=== PATIENT | female | born 1995 | race Two or more races ===

== ENCOUNTER → 2017-08-24 | Outpatient (CLI) | payer OTHER ==
[2017-08-24 21:05] LABS: HEMATOCRIT 39.2 % (36.0-47.0); HEMOGLOBIN 12.3 g/dl (12.0-15.5); MEAN CORPUSCULAR HEMOGLOBIN 25.2 pg (27.0-33.0); MEAN CORPUSCULAR HGB CONC 31.4 g/dl (32.0-36.5); MEAN CORPUSCULAR VOLUME 80.3 fl (80.0-96.0); PLATELET COUNT, AUTOMATED 358 10^3/uL (150-450); RED BLOOD COUNT 4.88 10^6/uL (4.00-5.40); RED CELL DISTRIBUTION WIDTH 15.8 % (11.5-14.5); WHITE BLOOD COUNT 8.6 10^3/uL (4.0-10.0)
[2017-08-24 21:24] LABS: ESTIMATED AVERAGE GLUCOSE 97 MG/DL (60-110)
[2017-08-24 21:25] LABS: ALBUMIN 3.9 GM/DL (3.2-5.2); ALBUMIN/GLOBULIN RATIO 1.08 (1.00-1.93); ALKALINE PHOSPHATASE 86 U/L (45-117); ALT/SGPT 24 U/L (12-78); ANION GAP 5 MEQ/L (8-16); AST/SGOT 13 U/L (7-37); BILIRUBIN,TOTAL 0.2 MG/DL (0.2-1.0); BLOOD UREA NITROGEN 8 MG/DL (7-18); CALCIUM LEVEL 8.5 MG/DL (8.5-10.1); CARBON DIOXIDE LEVEL 28 MEQ/L (21-32); CHLORIDE LEVEL 109 MEQ/L (98-107); CREATININE FOR GFR 0.75 MG/DL (0.55-1.30); FREE T4 0.65 NG/DL (0.76-1.46); GLOMERULAR FILTRATION RATE > 60.0 (>60); GLUCOSE, FASTING 83 MG/DL (70-100); SODIUM LEVEL 142 MEQ/L (136-145); TOTAL PROTEIN 7.5 GM/DL (6.4-8.2)
[2017-08-24 21:54] LABS: TOTAL 25(OH) VITAMIN D 16.1 NG/ML (30.0-100.0)
[2017-08-24 21:55] LABS: FOLATE 12.9 NG/ML; VITAMIN B12 LEVEL 406 PG/ML
== END ==
LOC: M LRY 15:45
DX: E66.09 Other obesity due to excess calories (principal); E55.9 Vitamin D deficiency, unspecified; R53.82 Chronic fatigue, unspecified; Z13.0 Encounter for screening for diseases of the blood and blood-forming organs and certain disorders involving the immune mechanism; Z13.29 Encounter for screening for other suspected endocrine disorder; Z13.1 Encounter for screening for diabetes mellitus

== ENCOUNTER → 2017-09-12 | Outpatient (CLI) | payer OTHER ==
[2017-09-12 11:46] LABS: FREE T4 0.83 NG/DL (0.76-1.46)
== END ==
LOC: M LRY 09:36
DX: R94.6 Abnormal results of thyroid function studies (principal)
CPT/HCPCS: 84443

== ENCOUNTER 2019-02-05 16:48 | Emergency (ER) | payer OTHER ==
[~2019-02-05] VITALS: Ht 165.1 cm; Wt 85.6 kg
[2019-02-05] MEDS ORDERED: PHEN-239 PO (16:57)
[2019-02-05 18:17] LABS: APPEARANCE, URINE HAZY (CLEAR); BACTERIA, URINE AUTO NEGATIVE (NEGATIVE); BILIRUBIN, URINE AUTO NEGATIVE (NEGATIVE); BLOOD, URINE BLOOD NEGATIVE (NEGATIVE); COLOR, URINE YELLOW (YELLOW); GLUCOSE, URINE (UA) AUTO NEGATIVE (NEGATIVE); KETONE, URINE AUTO TRACE mg/dL (NEGATIVE); LEUKOCYTE ESTERASE, URINE AUTO TRACE (NEGATIVE); MUCUS, URINE SMALL (NEGATIVE); NITRITE, URINE AUTO NEGATIVE (NEGATIVE); PROTEIN, URINE AUTO NEGATIVE (NEGATIVE); RBC, URINE AUTO 5 /HPF (0-3); SPECIFIC GRAVITY URINE AUTO 1.023 (1.002-1.035); SQUAMOUS EPITHELIAL CELL UR AU 5 /HPF (0-6); UROBILINOGEN, URINE AUTO 0.2 mg/dL (0.0-2.0); WBC, URINE AUTO 2 /HPF (0-3)
--- NOTE | 2019-02-05 19:31 | REPVR ---
EXAM: US Pelvis Complete, Transabdominal and US Pelvis, Transvaginal and US Duplex Artery and Vein, Ovaries, Complete EXAM DATE/TIME: 02/05/2019 7:01 PM CLINICAL HISTORY: 23 years old, female; Pelvic pain; Additional info: Dislodged iud? Pelvic pain with HX of same TECHNIQUE: Imaging protocol: Real-time transabdominal and transvaginal pelvic ultrasound (complete) with image documentation. Transvaginal imaging was used for better evaluation of the endometrium and adnexa. Real-time duplex ultrasound scan of the arterial and venous flow of the ovaries with B-mode, color Doppler flow and spectral waveform analysis. COMPARISON: No relevant prior studies available. FINDINGS: Uterus/cervix: The uterus measures 7.5 x 3.7 x 5.2 cm. The endometrium measures 6.1 mm. An IUD is present, appears appropriately positioned. Right adnexa: The right ovary measures 3.4 x 2.0 x 2.7 cm. No mass or dominant cyst. Normal color and spectral blood flow. Left adnexa: The left ovary measures 2.4 x 1.2 x 2.2 cm. No mass or dominant cyst. Normal color and spectral blood flow. Free fluid: None. Bladder: Unremarkable considering the limited degree of distention on the transabdominal images. IMPRESSION: 1. No acute findings. 2. Appropriately positioned intrauterine device. 3. No evidence of ovarian torsion. Electronically signed by: Nereyda Sexton On 02/05/2019 19:31:21 PM
[2019-02-05 19:42] LABS: CHLAMYDIA DNA AMPLIFICATION NEGATIVE (NEGATIVE); GC DNA AMPLIFICATION NEGATIVE (NEGATIVE)
[2019-02-05] MEDS ORDERED: metroNIDAZOLE (FLAGYL) 500 MG TAB PO ONE (19:45)
[2019-02-05] MEDS ORDERED: FLAG500T PO (19:47)
[2019-02-05 19:48] VITALS: BP 116/63
== END 2019-02-05 19:55 | disposition home or self-care (01) ==
LOC: M ED 16:48
DX: N76.0 Acute vaginitis (principal); Z97.5 Presence of (intrauterine) contraceptive device; Z79.899 Other long term (current) drug therapy

== ENCOUNTER → 2021-01-29 | Outpatient (CLI) | payer OTHER ==
[~2021-01-29] MED LIST: FLAG500T PO; PHEN-239 PO
--- NOTE | 2021-01-29 16:22 | REP ---
INDICATION: GROWTH-POLYHYDRAMNIOS. COMPARISON: None. TECHNIQUE: Real-time sonographic evaluation of the gravid uterus performed. FINDINGS: Estimated gestational age is36 weeks 1 day, EDC 02/25/2021. Today's measurements indicate appropriate growth. Presentation: Cephalic Placenta anterior, grade 0, without evidence of placenta previa. heart rate is recorded at 150 beats per minute. Amniotic fluid is subjectively normal. MAU 16.1, normal 7.7-24.9. Biophysical profile score 8/8. SD ratio umbilical artery 1.93, normal 1.64-3.50. RI 0.48, normal 0.45-0.71. Closed cervical length is measured at 3.9 cm. Biometry chart: BPD: 93 mm, 37 weeks 5 days, 73rd percentile. HC: 337 mm, 38 weeks 4 days, 92nd percentile AC: 359 mm, 39 weeks 6 days, over 95th percentile Femur length: 76 mm, 39 weeks 0 days, 92nd percentile HC to AC ratio: 0.94, normal range 0.92-1.11. Estimated weight: 3728g, over 97th percentile. anatomy: Cranium: Grossly normal Nose/lips/profile: Grossly normal Left-sided stomach: Grossly normal Kidneys: Grossly normal Bladder: Grossly normal Cord Insertion: Grossly normal 3 vessel cord: Grossly normal Spine: Grossly normal IMPRESSION: Viable single intrauterine gestation as above. <Electronically signed by Israel Shi > 01/29/21 [id number]
== END ==
LOC: M RAD 14:54
PROVIDERS: ATTEND Obstetrics & Gynecology
DX: Z36.89 Encounter for other specified antenatal screening (principal); Z3A.36 36 weeks gestation of pregnancy

== ENCOUNTER 2021-02-19 20:50 | Inpatient (IN) | payer OTHER ==
[~2021-02-19] VITALS: Ht 165.1 cm; Wt 109.2 kg
[2021-02-19] MEDS ORDERED: PRENTAB9 PO (21:01)
[2021-02-19] MEDS ORDERED: ACET325C5 PO (21:08)
[2021-02-19] MEDS ORDERED: TUMS500C PO (21:08)
[2021-02-19] MEDS ORDERED: HOME MED LIST COMPLETE! XX SCH (21:10)
[2021-02-19 21:21] VITALS: BP 109/65
--- NOTE | 2021-02-19 22:22 | HPEPDOC ---
Obstetrical History & Physical General Date of Admission Feb 19, 2021 at 20:50 History of Present Illness 25yo presents for induction of labor 2/2 polyhydramnios, LGA. SHe is 39+ 1 today. she feels well and denies vaginal bleeding, loss of fluid. Feels occasional contractions and endorses positive movement. Care Care: Good Care Dating Final EDC: Feb 25, 2021 Final EDC by: LMP LMP: May 21, 2020 Antepartum Course Diagnos(e)s polyhydramnios LGA 97% [id number] obesity rH negative excessive weight gain Pre- weight (lbs.): 190 Admission Weight (lbs.): 233 Change in Weight (lbs.): 43 Past Medical History Past Obstetrical History : Past Obstetrical History: Multigravida (G1 2017 at 37 weeks, G2 SAB) ALTERATION MANAGER History: Spontaneous Past Medical History Medical History depression (needs 2-week follow up) Surgical History: Appendectomy, [place] teeth Family History Significant Family History: Other Family History Mother high cholesterol Father high blood pressure Social History Marital Status: Family situation: Spouse/partner home Psychosocial History: Other ( depression) * Smoker: non-smoker Alcohol: Denies Drugs: denies Abuse Violence Screening Have you been hit/kicked/slapp: No Have you been sexually assault: No Imunizations Tdap status: declined Influenza Status: current Allergies Coded Allergies: No Known Allergies (Unverified , 02/05/19) Medications Scheduled No.137/Iron/Folic Acd ( Vitamin Tablet) 1 Each Tablet, 1 TAB PO DAILY Miscellaneous Medications Acetaminophen (Tylenol) 325 Mg Capsule, 1,000 MG PO Calcium Carbonate (Tums) 200 Mg Tab.chew, 500 MG PO Physical Examination Physical Examination GENERAL: Alert and oriented times three. ABDOMEN: Gravid and non-tender to touch. FETUS: Is vertex (VTX) by sterile vaginal examination (SVE), fetus is vertex (VTX) by ultrasound. EFW 3800g HEART RATE: Regular rate LUNGS: nonlabored breathing EXTREMITIES: No edema. Laboratory Data 24H LABS Laboratory Tests 2 02/19/21 21:17: Serology Scanned Report Hepatitis B Testing Urine Culture: No Growth Pertinent Laboratoy Data Blood Type: B- RBC Antibody Screen: Negative HIV: Negative Hepatitis B: Negative Rapid Plasma Reagin: Nonreactive Rubella: Immune Varicella: Immune Chlamydia/Gonorrhea: Negative Group B Streptococcus: Negative Quad Screen Test: Negative Cystic Fibrosis: Negative Anatomy Ultrasound Placenta Location: Anterior Normal Anatomy: Yes Placenta Previa: No Other Ultrasounds [id number] 97% 3728g Steroid Therapy Steroid Therapy: No Vaginal Examination Dilation: 1cm Effacement: 30% Station: -3 Presentation: Cephalic presentation Position: Vertex (occiput) Assessment Heart Rate (FHR): 130 Variability: Moderate Accelerations: Positive Decelerations: None Tocometer Contractions: Yes Frequency: irregular (does not feel them) Multi-drug resistant Organism: No history of MDRO Assessment/Plan Assessment Faith Denson is a 25-year-old (G)3 para (P)1011 at 39+1 weeks by LMP and first trimestter ultrasound. Presents to Labor and Delivery (L&D) for induction of labor 2/2 polyhydramnios, LGA. . Plan Admit and orient. [employer] and consent. Diet: clear liquid. Group B Streptococcus (GBS) [negative]. Labs and intravenous (IV) per unit protocol. Counseled on Pitocin and induction of labor (IOL). Lactated Ringers (LR) fluid therapy Anticipate [normal spontaneous delivery ()]. C-S as appropriate. Labor and Delivery Counseling L&D consent We will deliver your baby through the vagina with possible assistance of forceps or vacuum device if needed for maternal or indications. Forceps and vacuum are devices that can assist with vaginal delivery when normal pushing efforts cannot achieve delivery on their own or when delivery is needed in an emergency for baby's well-being. Medications may be required to induce or augment (help) your labor in order to achieve a vaginal delivery. An episiotomy may be required to help your baby to delivery vaginally. You may also require repair of any lacerations or tears of your vagina or vulva that are caused by delivery. In some cases, emergencies can occur that require an emergency section delivery so quickly that there may not be enough time to stop and complete consent forms for section. Understand that if this occurs, your providers will discuss the need for a section with you before they proceed with surgery. section is the delivery of your baby through an incision in your abdomen. In some situations, section may be safer to mom and baby than continuing labor and is only performed when clinically indicated. Risks of vaginal delivery include but are not limited to: Bleeding, infection, injury to the vagina, pelvic structures, injury to baby, damage to the uterus, reactions to anesthesia, uterine rupture, risk of hysterectomy for life threatening bleeding, or . Medications used to induce or augment labor may increase your risk for infection, uterine tachysystole, uterine rupture, heart rate abnormalities, need for emergency delivery or possible hysterectomy, and hemorrhage. Additional risks for use of forceps and vacuum include: increased risk of perineal and vaginal lacerations, risk of urinary or bowel incontinence, increased risk of injury to baby with bruising, scratches, hematomas on the head, or intracranial bleeding. NOMAN ROMERO. DO Feb 19, 2021 21:39
[2021-02-19 22:25] VITALS: BP 111/53
[2021-02-19] MEDS ORDERED: OXYTOCIN INJ 10 UNITS/ML VIAL (J2590) IM PRN (22:25)
[2021-02-19] MEDS ORDERED: TRANEXAMIC ACID INJection 1,000 MG in NS 100 ML IV PRN (22:25)
[2021-02-19] MEDS ORDERED: miSOPROStol 25MCG 1/4 TABLET PO ONE (22:25)
[2021-02-19] MEDS ORDERED: CARBOPROST TROMETHAMINE 250 MCG/ML AMP IM PRN (22:25)
[2021-02-19] MEDS ORDERED: METHYLERGONOVINE MALEATE 0.2 MG/ML VIAL (J2210) IM PRN (22:25)
[2021-02-19] MEDS ORDERED: LIDOCAINE 1% MDV 20ML VIAL INFIL PRN (22:25)
[2021-02-19] MEDS ORDERED: OXYTOCIN DRIP 30 UNITS in IV 1 EA IV PRN ×4 (22:25)
[2021-02-19 23:34] LABS: HEMATOCRIT 32.4 % (36.0-47.0); HEMOGLOBIN 10.9 g/dl (12.0-15.5); MEAN CORPUSCULAR HEMOGLOBIN 28.8 pg (27.0-33.0); MEAN CORPUSCULAR HGB CONC 33.6 g/dl (32.0-36.5); MEAN CORPUSCULAR VOLUME 85.7 fl (80.0-96.0); PLATELET COUNT, AUTOMATED 240 10^3/uL (150-450); RED BLOOD COUNT 3.78 10^6/uL (4.00-5.40); WHITE BLOOD COUNT 13.1 10^3/uL (4.0-10.0)
[2021-02-20] VITALS (42 sets, daily range): BP systolic 99–160; BP diastolic 52–87
--- NOTE | 2021-02-20 00:58 | IPNPDOC ---
Text Note Date of Service The patient was seen on 02/20/21. NOTE Called by nursing for deceleration to the 90s for about ten minutes. On arrival to the room baseline back to 120s, moderate variability. Recovery was via position changes. She has not yet received any induction medications. She is contracteing every 4 minutes. Prior to the decel the FHR was 120s, moderate with +accels and no decels. There was no inciting event. In the meantime her IV is n longer usable. This will be replaced. We will let the baby recover and reassess at that point. VS,Fishbone, I+O VS, Fishbone, I+O Laboratory Tests 02/19/21 23:15 Vital Signs Date Time Temp Pulse Resp B/P (MAP) Pulse Ox O2 Delivery O2 Flow Rate FiO2 02/19/21 22:25 74 18 111/53 (72) 02/19/21 21:21 97.3 NOMAN ROMERO DO Feb 20, 2021 00:58
[2021-02-20] MEDS: LR 1,000 ML IV SCH ×3 (01:06→14:17)
[2021-02-20] MEDS ORDERED: miSOPROStol 50MCG 1/2 TABLET PO ONE (03:55)
[2021-02-20] MEDS ORDERED: miSOPROStol 25MCG 1/4 TABLET PO ONE (04:05)
[2021-02-20] MEDS ORDERED: OXYTOCIN DRIP 30 UNITS in IV 1 EA IV SCH ×2 (10:00→18:25)
--- NOTE | 2021-02-20 10:20 | IPNPDOC ---
Obstetrical Progress Note Date of Service Feb 20, 2021 Subjective Pt resting comfortably without complaints Objective Vital Signs Date Time Temp Pulse Resp B/P (MAP) Pulse Ox O2 Delivery O2 Flow Rate FiO2 02/20/21 09:09 97.4 62 18 119/65 (83) Assessment Heart Rate (FHR): 140 Variability: Moderate Accelerations: None Decelerations: None Heart Rate Tracing: Category I Tocometer Contractions: Yes Frequency: irregular Duration: greater than 60 seconds Sterile Vaginal Examination Dilation: 5 cm Effacement (%): 70% Station: -2 Cervical Consistency: Medium Cervical Position: Posterior Postion/Presentation: Cephalic presentation Assessment and Plan Age: 25 : 3 Term: 1 Pre-term: 0 Abortions: 1 Livin EGA at Admission: 39 (+2) Status: Reassuring Group B Streptococcus: Negative Anticipate: Vaginal Delivery Additional Comments Pt was initially counseled on use of cytotec, cervical catheter, and pitocin use. SROM clear after exam, small-mod fluid at the time of rupture. LR @125ml/hr, continuous efm x2, initiate pitocin and titrate per protocol, monitor for change in or maternal status, encourage maternal movement and position changes, may have an epidural when desired, anticipate vaginal delivery. CROW FRANCIS CNM Feb 20, 2021 10:20
[2021-02-20] MEDS ORDERED: FENTANYL 2MCG/ML ROPIVACAINE 0.2% IN 0.9% NACL 100ML IVBAG As Ordered ONE (13:17)
[2021-02-20] MEDS ORDERED: EPIDURAL/PCA KEYS XX PRN (15:25)
[2021-02-20] MEDS ORDERED: diphenhydrAMINE 50MG/ML VIAL (J1200) IV PRN (15:25)
[2021-02-20] MEDS ORDERED: EPIDURAL COMMENT XX SCH (15:25)
[2021-02-20] MEDS ORDERED: ONDANSETRON 4MG/2ML VIAL IV PRN (15:25)
[2021-02-20] MEDS ORDERED: FENTANYL/ROPIVACAINE/NACL BAG 100 ML EPIDURAL SCH (15:25)
[2021-02-20] MEDS ORDERED: LACTATED RINGER'S 1000 ML IV PRN (15:25)
[2021-02-20] MEDS ORDERED: ePHEDrine SULFATE 25 MG/5 ML(5MG/ML) SYRINGE IV PRN (15:25)
[2021-02-20] MEDS ORDERED: REFRIGERATOR IV KEYS XX PRN (15:25)
[2021-02-20] MEDS ORDERED: NALOXONE INJ 0.4MG/1ML VIAL (J2310 PER 1MG) IV PRN (15:25)
--- NOTE | 2021-02-20 15:41 | IPNPDOC ---
Obstetrical Progress Note Date of Service Feb 20, 2021 Subjective Pt resting after epidural placement with c/o intermittent nausea and vomiting Objective Vital Signs Date Time Temp Pulse Resp B/P (MAP) Pulse Ox O2 Delivery O2 Flow Rate FiO2 02/20/21 14:25 97.3 77 20 141/80 (100) Assessment Heart Rate (FHR): 120 Variability: Moderate Accelerations: Positive Decelerations: Variable Heart Rate Tracing: Category II Tocometer Contractions: Yes Frequency: every 2-2 min. (on 6mu pitocin iv) Duration: greater than 60 seconds Strength: palpated as moderate, resting tone palp/soft Sterile Vaginal Examination Dilation: 5 cm Effacement (%): 90% Station: -2 Cervical Consistency: Soft Cervical Position: Middle Postion/Presentation: Cephalic presentation Assessment and Plan Age: 25 : 3 Term: 1 Pre-term: 0 Abortions: 1 Livin EGA at Admission: 39 (+2) Status: Reassuring Group B Streptococcus: Negative Anticipate: Vaginal Delivery Additional Comments continue LR @125ml/hr, continue pitocin induction and titrate per protocol, monitor for change in or maternal status, consider FSE as needed, anticipate vaginal delivery CROW FRANCIS CNM Feb 20, 2021 15:41
--- NOTE | 2021-02-20 17:31 | IPNPDOC ---
Obstetrical Progress Note Date of Service Feb 20, 2021 Subjective C/o continued nausea and vomiting, states pressure with contractions. Objective Vital Signs Date Time Temp Pulse Resp B/P (MAP) Pulse Ox O2 Delivery O2 Flow Rate FiO2 02/20/21 16:07 61 18 135/75 (95) 02/20/21 14:25 97.3 Assessment Heart Rate (FHR): 120 Variability: Moderate Accelerations: Positive Decelerations: Variable (variable decelerations with contractions, spontaneous recovery to baseline.), Recurrent Heart Rate Tracing: Category II Tocometer Frequency: regular Duration: greater than 60 seconds Strength: palpated as moderate, resting tone palp/soft Sterile Vaginal Examination Dilation: 9 cm Effacement (%): 100% Station: -1 Cervical Consistency: Soft Cervical Position: Middle Postion/Presentation: Cephalic presentation Assessment and Plan Age: 25 : 3 Term: 1 Pre-term: 0 Abortions: 1 Livin EGA at Admission: 39 (+2) Status: Reassuring Group B Streptococcus: Negative Anticipate: Vaginal Delivery Additional Comments 500ml ivf bolus then continue lr @125ml/hr, continue pitocin induction and titrate per protocol, monitor for change in or maternal status, consider internal monitors as needed, encourage frequent maternal repositioning, anticipate vaginal delivery CROW FRANCIS CNM Feb 20, 2021 17:31
[2021-02-20] MEDS ORDERED: MEASLES,MUMPS,RUBELLA VACCINE INJ (MMR-II) (90707) SC SCH (18:25)
[2021-02-20] MEDS ORDERED: DOCUSATE SODIUM 100MG CAPSULE PO PRN (18:25)
[2021-02-20] MEDS ORDERED: RHOGAM 300 MCG (1500 IU) INJ (J2790) IM SCH (18:25)
[2021-02-20] MEDS ORDERED: METHYLERGONOVINE MALEATE 0.2 MG TAB PO PRN (18:25)
[2021-02-20] MEDS ORDERED: DIBUCAINE 1% OINTMENT 30GM TOP PRN (18:25)
--- NOTE | 2021-02-20 18:48 | DNPDOC ---
[facility] Delivery Note Delivery Note DATE OF DELIVERY: 20Feb2021 PREDELIVERY DIAGNOSIS: 39-2/7 weeks' gestation and labor. POST DELIVERY DIAGNOSIS: Delivered. PROCEDURE: Spontaneous vaginal delivery. CUSTOM SKI MAKER: Marian Francis CNM ANESTHESIA: epidural. ESTIMATED BLOOD LOSS: 200 mL. FINDINGS: 7 pound 14 ounce (3580gm) male You, Score 8/9, nuchal cord times 2. DELIVERY SUMMARY: Patient is a 25-year-old 3 now para 2-0-1-2 who was admitted to labor and delivery for IOL on 19Feb2021. Faith was assisted to rotate to left lateral with a peanut ball. Deep variables were noted and pt c/o increased pressure. She was found to be at C/C/+2, and made brisk decent to in AO with restitution to ANTONETTE. A tight double nuchal cord was noted after delivery of the head. The right anterior shoulder delivered with gentle downward traction, easily followed by the posterior shoulder. thick meconium stained fluid was noted after delivery of the body. The was somersaulted towards the maternal right thigh. The cord was manually reduced and the infant was placed immediately skin to skin on the maternal abdomen where he was dried with the nose and mouth suctioned by nursing staff. The cod was clamped x2 after pulsation ceased and cut by the FOB. Cord blood was collected and sent for testing. Pitocin infusion was initiated per protocol. The placenta delivered spontaneously intact in [place] presentation with minimal bleeding. The fundus firmed with massage at U-2. The cervix and vagina were swept with several small clots noted. Examination of the perineum revealed a small first degree laceration and a hemostatic left labial abrasion. The perineal laceration was repaired using the Millie method with 3-[address]. Mother and baby entered the recovery phase in stable condition, skin to skin. MARIAN FRANCIS CNM Feb 20, 2021 18:48
[2021-02-21] MEDS: IBUPROFEN 800 MG TAB PO PRN ×2 (00:57→18:03)
[2021-02-21 06:00] VITALS: BP 122/67
--- NOTE | 2021-02-21 08:13 | OBDS ---
[facility] Obstetrical Discharge Sum. Obstetrical Discharge Summary Date: Feb 21, 2021 : 3 Term: 2 Pre-term: 0 Abortions: 1 Livin VDRL: Non-Reactive Rh: Negative Rubella: Immune Labor Uncomplicated IOL at 39+2 Delivery Uncomplicated , first degree midline laceration Infant Sex: Male Weight: pounds (7), ounces (14), grams (3580) Anesthesia: Regional Anesthesia Episiotomy first degree midline laceration A/P, Post Course List any complications Admission diagnosis: term IOL for polyhydramnios Discharge diagnosis: stable , day one Condition at Discharge: stable Discharge Instructions: [Home/other] Activity: ad ailyn Diet: regular Medications: at [place] Follow-up: 2wk for control consultation and depression screening, 6wk routine f/u Other: return precautions provided with expressed understanding. CROW FRANCIS CNM Feb 21, 2021 08:13
[2021-02-21] MEDS: ACETAMINOPHEN TAB 650MG DOSE (2X325MG) PO PRN ×2 (08:48→20:18)
[2021-02-21] MEDS: PRENATAL VITAMINS CHEWABLE TABLET PO SCH (08:48)
[2021-02-21 18:00] VITALS: BP 112/64
--- NOTE | 2021-02-22 04:44 | OBDS ---
[facility] Obstetrical Discharge Sum. Obstetrical Discharge Summary Date: Feb 22, 2021 A/P, Post Course List any complications : 3 Term: 2 Pre-term: 0 Abortions: 1 Livin VDRL: Non-Reactive Rh: Negative Rubella: Immune Labor Uncomplicated IOL at 39+2 Delivery Uncomplicated , first degree midline laceration Infant Sex: Male Weight: pounds (7), ounces (14), grams (3580) Anesthesia: Regional Anesthesia Episiotomy first degree midline laceration A/P, Post Course List any complications Admission diagnosis: term IOL for polyhydramnios Discharge diagnosis: stable , day one Condition at Discharge: stable Discharge Instructions: Home Activity: ad ailyn Diet: regular Medications: at [place] Follow-up: 2wk for control consultation and depression screening, 6wk routine f/u Other: return precautions provided with expressed understanding. MANFRED HENRY MD Feb 22, 2021 04:43
[2021-02-22] MEDS: IBUPROFEN 800 MG TAB PO PRN (05:10)
[2021-02-22 06:00] VITALS: BP 127/69
[2021-02-22] MEDS: PRENATAL VITAMINS CHEWABLE TABLET PO SCH (08:19)
[2021-02-22] MEDS: ACETAMINOPHEN TAB 650MG DOSE (2X325MG) PO PRN (08:19)
[2021-02-22] MEDS ORDERED: INFLUENZA QUADRIVALENT PF VACCINE 0.5ML SYRINGE IM ONE (09:00)
--- NOTE | 2021-02-22 18:09 | IPN ---
PROGRESS NOTE DATE: 02/21/2021 This patient and requested circumcision of their male infant. After discussing the risks and benefits of circumcision, the medical to nonmedical indications, the penile block and aftercare, expressed understanding of penile block, aftercare, and bleeding, signed the consent form, all questions were answered, 20 minute discussion. We await clearance by the associate editor.
== END 2021-02-22 13:35 | disposition home or self-care (01) | DRG 807 ==
LOC: M LDI 20:50 → M OBS 02-20 21:05
PROVIDERS: ADMIT Obstetrics & Gynecology; ATTEND Registered Nurse
PROC: 3E033VJ Introduction of Other Hormone into Peripheral Vein, Percutaneous Approach (ICD-10-PCS; 2021-02-19)
PROC: 10E0XZZ Delivery of Products of Conception, External Approach (ICD-10-PCS; principal; 2021-02-20)
PROC: 0HQ9XZZ Repair Perineum Skin, External Approach (ICD-10-PCS; 2021-02-20)
DX: O40.3XX0 Polyhydramnios, third trimester, not applicable or unspecified (principal); Z37.0 Single live birth; Z3A.39 39 weeks gestation of pregnancy; O99.214 Obesity complicating childbirth; E66.9 Obesity, unspecified; O76 Abnormality in fetal heart rate and rhythm complicating labor and delivery; O69.1XX0 Labor and delivery complicated by cord around neck, with compression, not applicable or unspecified; O77.0 Labor and delivery complicated by meconium in amniotic fluid; O70.0 First degree perineal laceration during delivery